=== PATIENT | male | born 1995 | race Caucasian/White ===

== ENCOUNTER 2021-10-24 20:36 | Emergency (ER) | payer OTHER ==
[2021-10-24 20:43] VITALS: BP 140/80
--- NOTE | 2021-10-24 21:18 | ED Physician Documentation ---
PD HPI BACK PAIN - Stated complaint Stated Complaint: BACK PAIN - Chief complaint Chief Complaint: Back Pain - Additional information Additional information: Patient is otherwise healthy 25-year-old male presenting to the emergency department with chief complaint of back pain. Endorses for 3 days mid center back pain which she states radiates up and down his back. Was sitting on his couch when pain came on. Denies any trauma to the back. Denies any changes in physical activity. He denies any fever, saddle paresthesias, IVDU, loss of bowel bladder control, lower extremity weakness. Review of Systems Ten Systems: 10 systems reviewed and negative Constitutional: denies: Fever Cardiac: denies: Chest pain / pressure GI: denies: Abdominal Pain Musculoskeletal: reports: Back pain PD PAST MEDICAL HISTORY - Past Medical History Past Medical History: No - Past Surgical History Past Surgical History: No - Present Medications Home Medications: Ambulatory Orders Medication Instructions Recorded Confirmed Acetaminophen [Tylenol] 650 mg PO Q6H PRN #30 tablet 10/24/21 Ibuprofen [Motrin] 800 mg PO Q8H PRN #30 tablet 10/24/21 methocarbamoL [Robaxin] 500 mg PO Q6H PRN #20 tablet 10/24/21 - Allergies Allergies/Adverse Reactions: Allergies Allergy/AdvReac Type Severity Reaction Status Date / Time No Known Drug Allergies Allergy Verified 10/24/21 20:43 - Social History Does the pt smoke?: Yes Smoking Status: Current every day smoker Does the pt drink ETOH?: Yes ETOH Use: Beer Does the pt have substance abuse?: No - Immunizations Immunizations are current?: Yes - POLST Patient has POLST: No PD ED PE NORMAL - General General: Alert and oriented X 3 - HEENT HEENT: Atraumatic - Neck Neck: Supple, no meningeal sign - Cardiac Cardiac: RRR - Respiratory Respiratory: No respiratory distress - Abdomen Abdomen: Normal bowel sounds - Back Back: No CVA TTP, No spinal TTP, Other (Diffuse tenderness to palpation of the latissimus dorsi muscle, left greater than right. There is no spinal tenderness to palpation. There is appropriate range of motion with full flexion, extension, lateral rotation.) Results - Vitals Vitals: Vital Signs - 24 hr 10/24/21 20:40 Temperature 36.3 C L Heart Rate 93 Respiratory 16 Rate Blood Pressure 140/80 H O2 Saturation 97 Oxygen O2 Source Room air PD MEDICAL DECISION MAKING - ED course Complexity details: d/w patient ED course: Patient is 25-year-old male presenting to the emergency department with 3-day history of back pain. Denied any fever, saddle paresthesias, changes bowel bladder habits or other red flags would be concerning for acute spinal cord compression. Physical exam demonstrated some diffuse tenderness to his latissimus dorsi muscles but no point tenderness to the spine itself. He denied any history of trauma. No indications for imaging at this time. Will initiate course of muscle relaxer, encouraged regular use, Motrin, Tylenol, as well as maintaining adequate hydration at home and remaining as physically active as possible until he has an opportunity to follow-up with his primary care doctor. Departure - Departure Disposition: Home, Self Care Clinical Impression: Back pain Instructions: IBUPROFEN (Adult), ED Neck Back Pain General Prescriptions: Ibuprofen [Motrin] 800 mg PO Q8H PRN #30 tablet PRN Reason: PAIN &/OR FEVER methocarbamoL [Robaxin] 500 mg PO Q6H PRN #20 tablet PRN Reason: muscle spasm Acetaminophen [Tylenol] 650 mg PO Q6H PRN #30 tablet PRN Reason: PRN PAIN &/OR FEVER Comments: Thank you for allowing us to care for you today [place]. I will be prescribing his medications you can take to help with your back including a muscle relaxer known as Robaxin. This medication is sedating and should not be used if you are operating a motor vehicle, using heavy machinery or you are the sole school office assistant of young children. Please stay well-hydrated at home. I recommend activity as tolerated as complete immobility can make back pain such as what you are experiencing worse. Please follow-up with your primary care doctor soon as you are able. If it anytime you develop any new or worsening symptoms, particularly if you are developing worsening pain, fever, loss of sensation around your anus, genitalia, loss of bowel or bladder control or weakness in your lower legs please return to the emergency department for further evaluation and treatment.
== END 2021-10-24 21:29 | disposition home or self-care (01) ==
LOC: ED 20:36
DX: M54.6 Pain in thoracic spine (principal); F17.200 Nicotine dependence, unspecified, uncomplicated
CPT/HCPCS: 99283

== ENCOUNTER 2022-01-18 14:13 | Outpatient (CLI) | payer OTHER ==
--- NOTE | 2022-01-18 17:06 | MRI Report ---
PROCEDURE: Ankle RT W/O INDICATIONS: INJURY TO RIGHT ANKLE TECHNIQUE: Noncontrast Magnetic Resonance Imaging (MRI) of the ankle/hindfoot was performed utilizing the follow ing sequences on a 3.0 Shannen Siemens MRI: sagittal T1 spin echo, sagittal STIR, axial PD fast spin ec ho, axial T2 fast spin echo with fat saturation, coronal T2 spin echo with fat saturation, and PD fas t spin echo with fat saturation. COMPARISON: None. Findings: Bones: No evidence of fracture, infiltration, ischemia or contusion. A prominent navicular tuberosi ty is seen. Muscles: No evidence of muscular atrophy or edema. Anterior tibiofibular ligament: Intact. Posterior tibiofibular ligament: Intact. Calcaneofibular ligament: Intact. Talar dome: No significant abnormality. Anterior talofibular ligament: Intact. Posterior talofibular ligament: Intact. Deltoid ligament: Intact. Peroneal tendons: No evidence of tear or tenosynovitis. Tibialis posterior: No evidence of tear or tenosynovitis. Flexor digitorum: No evidence of tear or tenosynovitis. Flexor hallucis longus: No evidence of tear or tenosynovitis. Sinus Tarsi: No mass or fibrosis. Achilles tendon: Intact. Joint effusion: No substantial tibiotalar joint effusion. Plantar fascia: No evidence of tear or inflammation. IMPRESSION: 1. No significant abnormality. 2. Prominent navicular tuberosity, which correlates to the area of clinical concern as indicated by t he marker. Reviewed by: Milo Seo MD on 01/18/2022 5:04 PM PDT Approved by: Milo Seo MD on 01/18/2022 5:04 PM PDT Station ID: [id number]
--- NOTE | 2022-01-18 17:10 | MRI Report ---
PROCEDURE: Foot RT W/O INDICATIONS: INJURY TO RIGHT ANKLE TECHNIQUE: Noncontrast sagittal T1 spin echo and T2 fast spin echo with fat saturation, long-axis T1 spin echo a nd T2 fast spin echo with fat saturation, short-axis proton density fast spin echo and T2 fast spin e cho with fat saturation through the forefoot. COMPARISON: None. FINDINGS: Image quality: Excellent. BONES AND JOINTS: Faint T2 hyperintense signal is seen within the first and second cuneiforms, which may reflect contusion. No distinct fracture line. Prominence of the navicular tuberosity. The sesamoi d bones appear in expected positions, without internal edema. No metatarsophalangeal joint degenerat ion. No intraosseous lesions. SOFT TISSUES: The visualized plantar foot muscles demonstrate normal signal and bulk. Visualized fl exor and extensor tendons appear intact, without tenosynovitis. No soft tissue ganglion cysts or bur kerry fluid collections. Sagittal images demonstrate no evidence for plantar plate tears. IMPRESSION: 1. Faint edematous signal within the first and second cuneiforms, which may reflect contusion. Reviewed by: Milo Seo MD on 01/18/2022 5:08 PM PDT Approved by: Milo Seo MD on 01/18/2022 5:08 PM PDT Station ID: [id number]
== END 2022-01-18 14:14 | disposition home or self-care (01) ==
LOC: DI 14:13
PROVIDERS: ATTEND Student in an Organized Health Care Education/Training Program
DX: S99.911A Unspecified injury of right ankle, initial encounter (principal)

== ENCOUNTER 2023-03-11 13:43 | Outpatient (CLI) | payer OTHER ==
--- NOTE | 2023-03-14 08:25 | MRI Report ---
PROCEDURE: CERVICAL SPINE WO INDICATIONS: LUMBAR AND CERVICAL RADICULAPATHY TECHNIQUE: Noncontrast sagittal T1 spin echo and T2 fast spin echo, sagittal STIR, foraminal oblique sagittal T2 fast spin echo, and axial gradient echo or T2 fast spin echo through the cervical spine. COMPARISON: None. FINDINGS: Image quality: Excellent. Alignment and Curvature: There is normal bony alignment. Bone Marrow: Marrow demonstrates normal overall signal. Spinal Cord: Visualized spinal cord has normal size and signal. No cerebellar tonsillar herniation. Paraspinous Soft Tissues: No paravertebral masses. Prevertebral soft tissues are normal in thicknes s. C2-C3: Mild bilateral facet hypertrophy. No canal stenosis or foraminal stenosis. C3-C4: Mild bilateral facet hypertrophy. Mild right uncovertebral joint hypertrophy. No canal steno sis or foraminal stenosis. C4-C5: Mild bilateral uncovertebral joint hypertrophy. No canal stenosis or foraminal stenosis. C5-C6: Minimal bilateral uncovertebral joint hypertrophy. No canal stenosis or foraminal stenosis. C6-C7: No canal stenosis or foraminal stenosis. C7-T1: Normal in appearance. IMPRESSION: 1. Mild spondylitic change. 2. No canal stenosis or foraminal stenosis. Reviewed by: Yehuda Frazier MD on 03/14/2023 8:23 AM PDT Approved by: Yheuda Frazier MD on 03/14/2023 8:23 AM PDT Station ID: [id number]
--- NOTE | 2023-03-14 08:27 | MRI Report ---
PROCEDURE: LUMBAR SPINE WO INDICATIONS: LUMBAR AND CERVICAL RADICULOPATHY TECHNIQUE: Noncontrast sagittal T1 spin echo and T2 fast echo, sagittal STIR, axial T1 and T2 fast spin echo thr ough the lumbar spine. In cases with scoliosis, additional coronal T2 fast spin echo may be performe d. COMPARISON: None. FINDINGS: Image quality: Excellent. Alignment and Curvature: There is normal bony alignment. Bone Marrow: Marrow is of normal overall signal. No acute vertebral body compression fractures. Spinal Cord: Conus medullaris terminates at the L1-L2 level. Visualized cord demonstrates normal si gnal and size. Paraspinous Soft Tissues: No paravertebral masses. T12-L1: Normal in appearance. L1-L2: Normal in appearance. L2-L3: Normal in appearance. L3-L4: Normal in appearance. L4-L5: Facet hypertrophy. No canal stenosis or foraminal stenosis. L5-S1: Facet hypertrophy. No canal stenosis or foraminal stenosis. IMPRESSION: 1. Lower lumbar facet hypertrophy. 2. No canal stenosis or foraminal stenosis. Reviewed by: Yehuda Frazier MD on 03/14/2023 8:25 AM PDT Approved by: Yehuda Frazier MD on 03/14/2023 8:25 AM PDT Station ID: [id number]
== END 2023-03-11 13:44 | disposition home or self-care (01) ==
LOC: DI 13:43
PROVIDERS: ATTEND Student in an Organized Health Care Education/Training Program
DX: M47.22 Other spondylosis with radiculopathy, cervical region (principal); M47.26 Other spondylosis with radiculopathy, lumbar region